=== PATIENT | female | born 1960 | race Caucasian/White ===

== ENCOUNTER 2025-07-02 21:59 | Inpatient (IN) | payer BC ==
[~2025-07-02] VITALS: Ht 177.8 cm; Wt 62.2 kg
--- NOTE | 2025-07-02 23:03 | Physician Documentation ---
History of Present Illness ~ Chief Complaint: Shortness of Breath Stated Complaint: TRANSFER Time Seen by MD: 22:07 HPI 64-year-old female, history of lymphoma, PE, on Eliquis, presenting with progressively worsening shortness of breath with exertion. Presents as a transfer from an outside hospital. She had a workup there that showed a pericardial effusion, likely the cause of her symptoms. White blood cell count 6.7. Kidney function normal. Troponin normal. CT PE study shows a moderate-sized pericardial infusion, no PE, small bilateral pleural effusions. The outside hospital did contact her oncology team at [facility]. There were no beds available. After a discussion, it was decided that she will be transferred to our hospital. Here now in the ED, she tells me that she is feeling okay at rest. She denies any significant shortness of breath or chest pain currently. Review of Systems Constitutional: Denies: fever Respiratory: Reports: SOB with exertion Physical Exam Vital Signs: Temperature: 97.8, Source: Oral, Heart Rate: 102, Respiratory Rate: 18, BP: 126/78, Pulse Oximetry: 98, Weight: 62.200 Oxygen Flow Rate: 0 Physical Exam General: This is a pleasant although chronically ill-appearing middle-aged woman, not in distress HEENT: Atraumatic, oropharynx is moist Heart: Mild tachycardic, diminished heart sounds,, normal-appearing peripheral perfusion Lungs: normal work of breathing at rest and is speaking in full sentences, normal oxygen saturation on room air Neuro: Alert and oriented Psychiatric: Calm and cooperative with exam Progress Results/Orders Results/Orders Orders - MUKUND MCCAULEY MD Electrocardiogram (07/02/25 22:00) Vital Signs 07/02/25 22:06 Temp 97.8 Pulse 102 Resp 18 B/P (MAP) 126/78 Pulse Ox 98 O2 Flow Rate 0 Consults/PCP Consults/PCP : Additional Comment Consult: I spoke to the internal medicine service, for admission in the hospital Medical Decision Making Additional info obtained from: old records Findings I reviewed records from the previous hospital, [facility]. This includes laboratory testing and CT imaging Additional Infomation The patient presents as a transfer from an outside hospital with a symptomatic pericardial effusion. At rest, she is not in distress and has minimal symptoms. She had an extensive workup already today including a CT of her chest. She will be admitted to the medicine service for further workup and treatment. Departure Impression: Primary Impression: Pericardial effusion Additional Impression: Exertional shortness of breath Referrals: NO PRIMARY CARE PROVIDER (PCP) Signature Scribe Signature: na Attestation: MUKUND Vázquez MD Jul 02, 2025 23:03
[2025-07-03] MEDS ORDERED: magnesium hydroxide 30ml (MOM) UD suspension PO PRN (00:15)
[2025-07-03] MEDS ORDERED: magnesium sulf-water 2g/50mL 50 ML IV PRN (00:15)
[2025-07-03] MEDS ORDERED: mag hydrox/Alum hydrox/simeth 30ml oral suspension PO PRN (00:15)
[2025-07-03] MEDS ORDERED: potassium Cl 20 mEq SR tablet PO PRN ×2 (00:15)
[2025-07-03] MEDS ORDERED: potassium Cl 40MEQ/1/2NS 520ml 520 ML IV PRN (00:15)
[2025-07-03] MEDS ORDERED: ondansetron/PF 4mg/2ml inj IV PRN (00:15)
[2025-07-03] MEDS ORDERED: magnesium sulf-water 4G/100mL 100 ML IV PRN (00:15)
[2025-07-03] MEDS ORDERED: magnesium Cl slow-release 64mg tablet PO PRN (00:15)
--- NOTE | 2025-07-03 00:34 | HISTORY AND PHYSICAL-Residence ---
History & Physical Providers to Resident Creating Document: ADE MARIE, DELFINO ~ History of Present Illness Reason for Admit\Complaint: Shortness of breath History of Present Illness 64-year-old female with history of lymphoma, pulmonary embolism, pneumonia was transferred from [facility] for chest pain and shortness of breath on exertion. She states that her chest pain started 5 days ago while at rest. She reports the chest pain being diffuse all over and radiates to the back, worsened since yesterday and is at a severity of 6/10 now. She went to [place] today morning. She states that the pain increases when she leans forward and when she takes deep breaths. She has associated shortness of breath on exertion, which is not related to position. She reports having history of lymphoma, diagnosed in 2020, for which she underwent radiation and chemotherapy. She states that she became cancer free, but it again came back last January and has been on immunotherapy since then. She denies palpitations, diaphoresis, nausea, vomiting. She reports having chronic cough with mild clear sputum. She denies any recent infections, she states that she had pneumonia last September and that she was septic and hospitalized for few days. She states that she has right-sided ankle swelling but does not remember getting hurt or twisting it. She reports taking Eliquis due to past history of pulmonary embolism. She denies any other cardiac history. CT chest at [facility] shows moderate pericardial effusion. Initial attempt was made to transfer to [facility] for continuity of care with patient's oncology team, however there were no beds available. Allergies: Uncoded Allergies: CHEMOTHERAPY DRUG (Allergy, Unknown, 07/03/25) UNK DRUG; PT CAN NOT RECALL NAME Past Medical History Past Medical History Lymphoma Pulmonary embolism Pneumonia Hypothyroidism Past Surgical History Surgical History Comment Hysterectomy for endometriosis Past Social History Social History Comment She denies smoking She drinks alcohol occasionally-some wine couple times a week She denies recreational drug use ROS ROS Constitutional: No fever, chills, dizziness, weight gain or loss Eyes: No pain, erythema, discharge, blurring of vision ENT: No sore throat, epistaxis, tinnitus Cardiovascular: Reports chest pain, no palpitations, syncope, lower extremity edema, paroxysmal nocturnal dyspnea Respiratory: Reports Shortness of breath and cough, No hemoptysis. Gastrointestinal: No Abdominal pain, vomiting,nausea,constipation,diarrhea. Normal appetite. No hematemesis or melena. Musculoskeletal: Reports Swelling in right ankle, no swelling in left leg, no pain in bilateral lower legs. Integumentary: No change in skin, hair, nails. No bruising, abrasions Neurologic: No weakness,No headache, neck pain, numbness or tingling of the extremities, Psychiatric: No delusions, depression, loss of interest in normal activity or change in sleep pattern, hallucinations, suicidal ideations Endocrine: No fatigue, no weakness. polydipsia, polyuria, change in appetite, heat or cold intolerance, sweating, dry skin Hematological: No bleeding, petechiae, bruising Allergies: No asthma or urticaria Constitutional: Denies: fever Respiratory: Reports: SOB with exertion Exam Vitals: Vital Signs Date Time Temp Pulse Resp B/P (MAP) Pulse Ox O2 Delivery O2 Flow Rate FiO2 07/02/25 22:06 97.8 102 18 126/78 98 0 General: Awake , alert, and oriented x4, resting comfortably in the bed, in no acute distress HEENT: Atraumatic, normocephalic, EOMI, anicteric sclera ; pink conjunctiva Neck: Trachea midline. Supple, full range of motion, no JVD Cardiac: Tachycardic, Regular rhythm with no murmurs all over the precordium, no tenderness Respiratory: Equal breath sounds bilaterally, no tachypnea, no wheezing ,rub or rales, Chest wall is symmetric and without deformity. Gastrointestinal: Abdomen symmetric, non-distended, soft, non-tender, normal bowel sounds x4 quadrant, normoactive, no hepatosplenomegaly Musculoskeletal: Mild swelling in right ankle, No left pedal edema, no cyanosis Neurological: Speech is clear, alert, and oriented x 4. No motor or sensory deficit, deep tendon reflexes normal, cerebellar intact. Cranial nerves II-XII intact. Skin: Warm and dry Diagnostic Data Last Recorded Lab Results: 07/03/25 0049 07/03/25 0049 Additional Plan Chest pain, possibly due to pericardial effusion History of lymphoma CT at [facility] shows no PE, small bilateral pleural effusions with associated compressive atelectasis, and shows pericardial effusion Chest x-ray at [facility] shows bilateral pleural effusion with adjacent bilateral lung base atelectasis EKG shows no ST-elevation, no arrhythmias Plan: Follow up BNP, echo Follow up troponins Follow up WBC, electrolytes Follow up lactate, procalcitonin, ESR, CRP Pending home med reconciliation She uses Eliquis due to previous history of pulmonary embolism, hold Eliquis Ordered colchicine 0.6 mg p.o. once Patient not started on NSAIDs in view of recent use of Eliquis at home, which makes bleeding risk high if plan for any procedures History of pulmonary embolism Patient was using Eliquis at home We will restart after patient stabilized Hypothyroidism Patient using levothyroxine at home Follow up TSH Code status: Full code DVT prophylaxis: SCD Pain management: Morphine 1 mg/2 mg p.r.n. Diet/nutrition: Heart healthy diet Prognosis: Guarded Disposition: Continue medical management, follow up echo, PT eval and DC plan Resident MD attestation: The patient note has been reviewed and supervised by senior residents PGY-2/ PGY-3. Patient was seen, examined and discussed with attending physician. Ade Marie MD Internal Medicine resident, PGY-1 [facility] Date of Service: Jul 03, 2025 Billing Provider: MADDIE AGUILERA MD Addendum agreed with resident Pericardial effusion - moderate -hold elliquis - echo stat - colcichine PO for pericardititis - esr, crp - cards consult IM 3 ADE MARIE, RES Jul 03, 2025 00:34 MADDIE AGUILERA MD Jul 03, 2025 03:57
[2025-07-03 00:55] LABS: MEAN PLATELET VOLUME 5.8 FL (7.4-10.4); RED CELL DISTRIBUTION WIDTH 16.0 % (11.5-14.5)
[2025-07-03] MEDS ORDERED: EST1T PO (00:58)
[2025-07-03] MEDS ORDERED: ACYC-129 PO (00:58)
[2025-07-03] MEDS ORDERED: ARIP5TAB12 PO (00:58)
[2025-07-03] MEDS ORDERED: APIX5TAB3 PO (00:58)
[2025-07-03] MEDS ORDERED: ESCI10TA PO (00:58)
[2025-07-03] MEDS ORDERED: CYCL-1 PO (00:58)
[2025-07-03] MEDS: heparin sodium, porcine/PF 100unit/ml 5ML syringe IV STA ×2 (01:02→03:47)
[2025-07-03 01:09] LABS: APTT 40 SECONDS (22-32); INR 1.2 INR
[2025-07-03 01:18] LABS: CREATININE 0.57 MG/DL (0.40-0.90); PHOSPHORUS 3.0 MG/DL (2.3-4.5); PRO BRAIN NATRIURETIC PEPTIDE 595 PG/ML (0-125); TOTAL CARBON DIOXIDE 25.7 MMOL/L (24-32); eCRCL 98 ML/MIN; eGFR > 90 ML/MIN
[2025-07-03 01:19] LABS: LEUKOCYTE ESTERASE ,URINE NEGATIVE (Neg); NITRITES, URINE NEGATIVE (Neg); OCCULT BLOOD,URINE TRACE-INTACT (Neg)
[2025-07-03 01:28] LABS: UA COLLECTION TYPE VOIDED
[2025-07-03 01:31] LABS: HYALINE CASTS 0-3 /LPF (NEGATIVE); MUCUS STRANDS FEW /LPF (Neg); SQUAMOUS EPITHELIAL CELL,UR FEW /LPF (FEW)
[2025-07-03 01:32] LABS: CAL OXALATE CRYSTALS 1+ /HPF (NEGATIVE)
[2025-07-03] MEDS ORDERED: heparin sodium, porcine/PF 100unit/ml 5ML syringe IV STA (02:50)
[2025-07-03] MEDS: oxyCODONE IR 5mg (immed. release) tablet PO ONE (03:46)
--- NOTE | 2025-07-03 06:30 | ELECTROCARDIOGRAPH REPORT ---
[facility] Test Date: 2025-07-02 Test Time: 22:02:15 Pat Name: JOEL JENKINS Department: [facility]-ER Patient ID: [facility]-[id number] Room: [place] [address] Gender: F Lawn Specialist: : [id number] Requested By: MUKUND MCCAULEY Order Number: [id number] Reading MD: Dr. Chilango Valentin Measurements Intervals [place] Rate: 103 P: 16 MO: 150 QRS: -28 QRSD: 94 T: 74 QT: 310 QTc: 406 Interpretive Statements Sinus tachycardia Borderline left axis deviation Probable anterior infarct, old ST elevation, consider inferior injury Electronically Signed On 07-06-2025 21:45:[address] Chilango Valentin Please click the below link to view image of tracing.
[2025-07-03 08:00] VITALS: RESP 16; O2SAT 96
[2025-07-03] MEDS: K and/or MAG REPLACEMENT MC SCH (08:00)
[2025-07-03 11:00] VITALS: BP 125/82; PULSE 101; RESP 20; TEMP 98; O2SAT 98
[2025-07-03] MEDS: docusate sod 100mg capsule PO SCH (11:28)
[2025-07-03] MEDS: levoTHYROXINE 25mcg tablet PO SCH (11:29)
--- NOTE | 2025-07-03 12:10 | RADIOLOGY REPORT ---
CHEST RADIOGRAPH Indication: monitor changes Technique: Single frontal view of the chest was obtained Comparison: XR CHEST 2 VIEWS on DOS: 07/02/25 FINDINGS: Lines and Tubes: Right infusion catheter with its tip terminating in the superior vena cava. Lungs: Bibasilar airspace disease. Pleura: Stable bilateral pleural effusions. No pneumothorax. Cardiomediastinal contours: Unremarkable Bones: No acute osseous abnormality. IMPRESSION: 1. Bibasilar airspace disease and pleural effusions. No significant interval change.
[2025-07-03] MEDS ORDERED: SULF1TAB45 PO (12:41)
--- NOTE | 2025-07-03 13:52 | PROGRESS NOTE- Residence ---
Progress Note - Resident Providers to CC Resident Creating Document: ELAINE KIMBALL RES ~ Antibiotic Timeout Antibiotic Ordered?: Yes Subjective Patient was seen and examined at the bedside. is at the bedside who is concerned about his condition. Patient is hemodynamically stable. Consulted medical transcriber Dr. Tonja Singleton who recommended medical management as the pericardial effusion is likely secondary to malignancy and would likely be recurring even after pericardiocentesis. Medication reconciliation done. Records requested from [facility] to check for any medications that could be causing cardiomyopathy and pericardial effusion. Restarted patient prophylactic antibiotics for neutropenia including Bactrim 3 times weekly and antiviral prophylaxis with acyclovir b.i.d. Objective Vital Signs Date Time Temp Pulse Resp B/P (MAP) Pulse Ox O2 Delivery O2 Flow Rate FiO2 07/03/25 08:23 96 07/03/25 03:10 97.8 17 113/78 (90) 96 0 Result Diagram: 07/03/25 0049 07/03/25 0049 General: This is a pleasant although chronically ill-appearing middle-aged woman, not in distress, not on oxygen HEENT: Atraumatic, oropharynx is moist Heart: Regular rate and rhythm, slightly diminished heart sounds, no pericardial friction rub, normal-appearing peripheral perfusion Lungs: normal work of breathing at rest and is speaking in full sentences, normal oxygen saturation on room air Neuro: Alert and oriented Psychiatric: Calm and cooperative with exam Coagulation Studies Laboratory Tests Test 07/03/25 00:49 07/03/25 10:45 Prothrombin Time 11.9 SECONDS (9.0-12.0) INR International Normalized Ratio 1.2 INR Activated Partial Thromboplast Time 40 SECONDS (22-32) H Coagulation Comments D-Dimer 6.18 MG/L FEU (0-0.50) H D-Dimer Comment Assessment Assessment 64-year-old female with history of lymphoma, pulmonary embolism, pneumonia was transferred from [facility] for chest pain and shortness of breath on exertion. She states that her chest pain started 5 days ago while at rest. She reports the chest pain being diffuse all over and radiates to the back, worsened since yesterday and is at a severity of 6/10 now. She went to [place] today morning. She states that the pain increases when she leans forward and when she takes deep breaths. She has associated shortness of breath on exertion, which is not related to position. She reports having history of lymphoma, diagnosed in 2020, for which she underwent radiation and chemotherapy. She states that she became cancer free, but it again came back last January and has been on immunotherapy since then. She denies palpitations, diaphoresis, nausea, vomiting. She reports having chronic cough with mild clear sputum. She denies any recent infections, she states that she had pneumonia last September and that she was septic and hospitalized for few days. She states that she has right-sided ankle swelling but does not remember getting hurt or twisting it. She reports taking Eliquis due to past history of pulmonary embolism. She denies any other cardiac history. CT chest at [facility] shows moderate pericardial effusion. Initial attempt was made to transfer to [facility] for continuity of care with patient's oncology team, however there were no beds available. Plan Plan Acute pericardial effusion likely malignant effusion, other differentials include pericardial effusion secondary to heart failure History of lymphoma Acute on chronic heart failure with preserved ejection fraction Small bilateral pleural effusions CT at [facility] shows no PE, small bilateral pleural effusions with associated compressive atelectasis, and shows pericardial effusion Chest x-ray at [facility] shows bilateral pleural effusion with adjacent bilateral lung base atelectasis Chest x-ray to [facility] shows bibasilar infiltrates with cardiomegaly EKG shows sinus rhythm. Continue telemetry monitoring. BNP 595, echocardiogram shows small pericardial effusion with hemodynamic stability and EF of 55-60%. Started on IV Lasix 20 mg daily. Monitor I&O. Serial troponins negative Mild leukopenia likely secondary to immunotherapy, continue monitoring ANC 3000. Currently on prophylactic antibiotics with Bactrim 3 times a week, acyclovir and b.i.d. Lab evaluation normal lactate, procalcitonin 0.05, ESR significantly elevated likely secondary to malignancy, CRP slightly elevated Ordered colchicine 0.6 mg p.o. b.i.d. daily Started on NSAIDs ibuprofen 600 mg q.8 hours. Obtain records from [facility]. History of pulmonary embolism Patient was using Eliquis at home Restarted Eliquis 5 mg b.i.d. Hypothyroidism Started on levothyroxine 25 mcg TSH is slightly elevated at 12 Code status: Full code DVT prophylaxis: Eliquis Pain management: Ibuprofen Diet/nutrition: Heart healthy diet Prognosis: Guarded Disposition: Continue medical management, anticipated discharge tomorrow Patient was seen, examined and discussed with attending physician. Elaine Hart MD Internal Medicine resident, PGY-2 [facility] Date of Service: Jul 03, 2025 Billing Provider: DELFINA LIVINGSTON MD Common Visit Codes: [id number] INP/OBS CARE(HIGH) ELAINE KIMBALL, RES Jul 03, 2025 13:52 DELFINA LIVINGSTON MD Jul 03, 2025 18:17
[2025-07-03] MEDS: normal saline 1000ml 1,000 ML IV SCH (14:30)
[2025-07-03 15:00] VITALS: BP 113/86; PULSE 102; RESP 20; O2SAT 98
[2025-07-03] MEDS: sulfamethoxazole/trimethoprim DS (800/160mg) tablet PO SCH (16:56)
--- NOTE | 2025-07-03 17:12 | CONSULTATION REPORT ---
History of Present Illness Providers to CC CC: MIKE SINGLETON MD ~ Reason for Admit\Admit Dx: Shortness of breath History of Present Illness Patient presented as a transfer from [facility] secondary to pericardial effusion. She has past medical history significant for lymphoma with reoccurrence in December, she has had two PEs in the past in his being treated with Eliquis. She presented secondary to sharp like chest pain for the past 4-5 days that is intermittent worse with leaning forward. States dyspnea on exertion and not being able to take a deep breath. Pain has improved since arrival. Apparently, she had a CT scan at [facility] that demonstrated a moderate pericardial effusion. She underwent a TTE here at [facility] that demonstrated a small circumferential pericardial effusion without evidence of hemodynamic compromise. Her vital signs have remained stable. She is chest pain-free. Sed rate elevated, CRP elevated. Cardiology consultation requested with the on-call truck cleaner, Dr. Singleton. Allergies: Uncoded Allergies: CHEMOTHERAPY DRUG (Allergy, Unknown, 07/03/25) UNK DRUG; PT CAN NOT RECALL NAME Home Medications Home Medications Active Reported Sept Ds Tab (Trimethoprim/Sulfamethoxazole) 800 Mg/160 Mg Tablet 1 Tab PO MOWEFR Estrace* (Estradiol) 1 Mg Tablet 1 Tab PO DAILY 30 Days Abilify* (Aripiprazole) 5 Mg Tablet 1 Tab PO DAILY 30 Days Lexapro (Escitalopram Oxalate) 10 Mg Tablet 1 Tab PO DAILY 30 Days Cyclobenzaprine* (Cyclobenzaprine HCl) 10 Mg Tablet 1 Tab PO HS 30 Days Zovirax* (Acyclovir) 800 Mg Tablet 1 Tab PO BID 7 Days Eliquis (Apixaban) 5 Mg Tablet 1 Tab PO Q12H 30 Days Past Medical History Medical History Comment Lymphoma Pulmonary embolism Hyperparathyroidism Hypercalcemia Past Surgical History Surgical History Comment Denies surgical history Past Social History Social History Comment Rarely drinks alcohol. No recreational drug use. Nonsmoker. Physical Exam Last Vital Signs Recorded: RN Vital Signs have been reviewed: Yes, Temperature: 97.8, Source: Oral, Heart Rate: 96, Respiratory Rate: 17, BP: 113/78, Pulse Oximetry: 96, Weight: 62.200 Physical Exam General: Awake, alert, oriented. No apparent distress Neck: Supple. Normal range of motion. No JVD Respiratory: Lungs are clear to auscultation bilaterally. No respiratory distress. Chest: Normal shape and size. No accessory muscle use. Cardiovascular: Regular rate and rhythm. S1-S2. No murmur, gallop, rub. Gastrointestinal: Abdomen is soft. Nontender to palpation. Extremities: No lower extremity edema, cyanosis or clubbing. Neurologic: Alert and oriented x4. Nonfocal Psychiatric: Normal mood and affect. Skin: Normal color. Warm and dry. Review of Systems ROS Review of systems negative except documented in HPI. Results EKG EKG Independent interpretation of EKG sinus tachycardia rate of 103. Left axis deviation. Poor R-wave progression. Echocardiogram Echocardiogram LVEF by preliminary report 60%. Small circumferential pericardial effusion by echocardiogram. Diagram Lab Result Diagram: 07/03/25 00407/03/25 004 Assessment/Plan Additional Plan Patient presented secondary to chest pain. The following is her problem list: Chest pain Small pericardial effusion meets some criteria for acute pericarditis with elevated inflammatory markers. will start ibuprofen 600 mg TID. given OAC use recommend omeprazole while on NSAIDs. f/up in the office within 2 weeks repeat TTE 3-6 weeks. History of pulmonary embolism --continue Eliquis 5 mg b.i.d. History of lymphoma Currently receiving immunotherapy hypothyroidism started on levothyroxine this admit. Case discussed with dr. Emelia Singleton who is in agreement with the above plan. Supervising MD Supervising Physician: ROLAND Vela NP Jul 03, 2025 17:12
[2025-07-03] MEDS ORDERED: ibuprofen tablet 400 MG TABLET PO SCH (17:30)
[2025-07-03 18:00] VITALS: BP 125/76; PULSE 102; RESP 18; TEMP 97.6; O2SAT 98
[2025-07-03] MEDS ORDERED: morphine 4 MG/ML inj SYRINge IV PRN ×2 (18:20→18:21)
--- NOTE | 2025-07-03 18:40 | CARDIOLOGY REPORT ---
APPROVED REPORT EXAM: Comprehensive 2D, Doppler, and color-flow Echocardiogram. Patient Location: [address] Blood Pressure: 113/78 mmHg Heart Rate: 100 bpm Rhythm: SINUS TACHYCARDIA Indications PERICARDIAL EFFUSION / TAMPONADE CHEST PAIN X5 DAYS MODERATE PERICARDIAL EFFUSION ON CT Business Rules Developer: none Previous echo: none 2D Dimensions RVDd 3.3 cm IVSd 1.1 (0.7-1.1cm) LVDd 4.3 cm PWd 1.2 (0.7-1.1cm) IVSs 1.4 (0.8-1.2cm) LVDs 2.8 (2.5-4.0cm) PWs 1.1 (0.8-1.2cm) LVOT Diameter 2.02 (1.8-2.4cm) LVEF(%) 65.7 (>50%) Ao Asc Diam. 3.08 cm IVC 19.45 mm FS (%) 35.9 % SV 55.9 ml CO 6.3 L/min M-Mode Dimensions Left Atrium(MM) 2.97 (2.5-4.0cm) Aortic Root 2.93 (2.2-3.7cm) Aortic Cusp Exc 2.05 (1.5-2.0cm) Aortic Valve AoV Peak Robbie. 146.0 cm/s AoV VTI 23.1 cm AO Peak GR. 8.5 mmHg AO Mean GR. 5 mmHg LVOT VTI 24.99 cm LVOT Peak Robbie. 124.3 cm/s DELIA(VTI)/BSA 3.46 cm2/m2 DELIA (VTI) 3.46 cm2 Mitral Valve MV E Velocity 85.0 cm/s MV Peak Gr. 4 mmHg MV DECEL TIME 134 ms MV A Velocity 102.3 cm/s MV PHT 52 ms E/A Ratio 0.8 MVA (PHT) 4.23 cm2 MV VMax 104.1 cm/s TDI Medial E' P. V 11.05 cm/s E/Medial E' 7.7 Pulmonary Vein S1 Velocity 64.7 cm/s D2 Velocity 47.9 cm/s PVa Velocity 27.9 cm/s PVa Duration 56 msec LEFT VENTRICLE Normal LV size and wall thickness. Overall systolic function is normal. LVEF is 60-65%. RIGHT VENTRICLE RV is mildly dilated in size with normal function. Thickened RV free wall. ATRIA LA size is normal. AORTIC VALVE Trileaflet AV appears mildly sclerotic without stenosis or insufficiency. MITRAL VALVE Mild MV annular calcification without stenosis. Trace regurgitation. TRICUSPID VALVE TV appears structurally normal with trace regurgitation. PULMONIC VALVE Normal PV without stenosis, physiologic insufficiency. GREAT VESSELS Aortic root is normal in size. Ascending aorta is normal in size. The IVC is normal in size and collapses greater than 50% with inspiration. PERICARDIUM Small circumferential pericardial effusion without evidence of hemodynamic compromise. Minimal MV respiratory variation noted. No RA or RV collapse noted. Other Information Study Quality: Adequate Conclusion Normal LV size and wall thickness. Overall systolic function is normal. LVEF is 60-65%. RV is mildly dilated in size with normal function. Thickened RV free wall. LA size is normal. Trileaflet AV appears mildly sclerotic without stenosis or insufficiency. Mild MV annular calcification without stenosis. Trace regurgitation. TV appears structurally normal with trace regurgitation. Small circumferential pericardial effusion without evidence of hemodynamic compromise. Minimal MV respiratory variation noted. No RA or RV collapse noted.
[2025-07-03 20:00] VITALS: RESP 18; O2SAT 98
[2025-07-03] MEDS: pantoprazole 40mg Tablet.DR PO SCH (20:30)
[2025-07-03 22:00] VITALS: BP 112/73; PULSE 99; RESP 14; TEMP 97.5; O2SAT 95
[2025-07-04 02:00] VITALS: BP 113/75; PULSE 95; RESP 14; TEMP 98; O2SAT 95
[2025-07-04 05:43] LABS: MEAN PLATELET VOLUME 6.2 FL (7.4-10.4); RED CELL DISTRIBUTION WIDTH 15.8 % (11.5-14.5)
[2025-07-04 06:00] VITALS: BP 138/84; PULSE 87; RESP 15; TEMP 97.4; O2SAT 97
[2025-07-04 06:13] LABS: CHOL/HDL RATIO 4.5 (0.00-4.99); CREATININE 0.57 MG/DL (0.40-0.90); LDL CHOLESTEROL 112 MG/DL (50-100); TOTAL CARBON DIOXIDE 27.7 MMOL/L (24-32); eCRCL 98 ML/MIN; eGFR > 90 ML/MIN
[2025-07-04 06:45] LABS: EOSINOPHILS % (MANUAL) 8.0 % (0-6); LYMPHOCYTES % (MANUAL) 8.0 % (21-51); MONOCYTES % (MANUAL) 16.0 % (2-12); NEUTROPHILS % (MANUAL) 68.0 % (42-75)
[2025-07-04 06:46] LABS: PLATELET ESTIMATE NORMAL
[2025-07-04] MEDS ORDERED: pantoprazole 40mg Tablet.DR PO SCH (07:30)
[2025-07-04 08:00] VITALS: RESP 15; O2SAT 97
[2025-07-04] MEDS ORDERED: IBUP-1594 PO (08:42)
[2025-07-04] MEDS ORDERED: PANT40TA54 PO (08:42)
[2025-07-04] MEDS: ESCITALOPRAM 10 mg tablet 10 MG TABLET PO SCH (09:07)
--- NOTE | 2025-07-04 11:00 | PROGRESS NOTE ---
Progress Note Cardiology Providers to CC CC: MIKE SINGLETON MD ~ Subjective Subjective Patient is seen and examined. She has been up and ambulatory. Denies chest pain. Objective Result Diagram: 07/04/25 0515 07/04/25 0515 Objective General: Awake, alert, oriented. No apparent distress Cardiac: Regular rate and rhythm. No murmur. No rub. Lungs clear to auscultation bilaterally Extremities: No edema Coagulation Studies Laboratory Tests Test 07/03/25 00:49 07/03/25 10:45 Prothrombin Time 11.9 SECONDS (9.0-12.0) INR International Normalized Ratio 1.2 INR Activated Partial Thromboplast Time 40 SECONDS (22-32) H Coagulation Comments D-Dimer 6.18 MG/L FEU (0-0.50) H D-Dimer Comment Problem\Assessment\Plan Additional Plan Patient presented secondary to chest pain. The following is her problem list: Chest pain Small pericardial effusion meets some criteria for acute pericarditis with elevated inflammatory markers. will start ibuprofen 600 mg TID. given OAC use recommend omeprazole while on NSAIDs. f/up in the office within 2 weeks repeat TTE 3-6 weeks. 07/04/25: discussed with pt and her at bedside. reviewed a note from lead oncologist who does not believe the effusion would be 2/2 malignancy. Therefore, mgt as per above. History of pulmonary embolism --continue Eliquis 5 mg b.i.d. History of lymphoma Currently receiving immunotherapy hypothyroidism started on levothyroxine this admit. Case discussed with dr. Emelia Singleton who is in agreement with the above plan. Supervising Physician: ROLAND Vela NP Jul 04, 2025 10:59
[2025-07-04] MEDS ORDERED: heparin sodium, porcine/PF 100unit/ml 5ML syringe ONE (11:14)
[2025-07-04] MEDS: heparin sodium, porcine/PF 100unit/ml 5ML syringe IV ONE (11:51)
--- NOTE | 2025-07-04 15:57 | DISCHARGE SUMMARY-Residence ---
Discharge Summary Providers to CC Resident Creating Document: ELAINE KIMBALL, RES ~ Discharge Summary Admission Diagnosis: SHORTNESS OF BREATH Hospital Course DATE OF ADMISSION: 07/02/2025 DATE OF DISCHARGE: 07/04/2025 Discharge Diagnosis\Comment: Acute pericardial effusion likely malignant effusion, acute heart failure Acute pericarditis can not be ruled out History of lymphoma Acute on chronic heart failure with preserved ejection fraction Small bilateral pleural effusions History of pulmonary embolism Hypothyroidism Operations\Procedures: None Consultants: Dr. Tonja Singleton Complications: None Condition on DC: Stable New Medications: Ibuprofen (Motrin Ib) 200 Mg Tablet 600 MG PO Q8H for 30 Days, #90 TAB Pantoprazole Sodium (Pantoprazole Sodium) 40 Mg Tablet.dr 40 MG PO ONCE for 30 Days, #30 TAB.SR Continued Medications: Acyclovir* (Zovirax*) 800 Mg Tablet 1 TAB PO BID for 7 Days, #35 TAB Apixaban (Eliquis) 5 Mg Tablet 1 TAB PO Q12H for 30 Days, #60 TAB 0 Refills Aripiprazole* (Abilify*) 5 Mg Tablet 1 TAB PO DAILY for 30 Days, #30 TAB 0 Refills Cyclobenzaprine* (Cyclobenzaprine*) 10 Mg Tablet 1 TAB PO HS for muscle spasms for 30 Days, #30 TAB 0 Refills Escitalopram Oxalate (Lexapro) 10 Mg Tablet 1 TAB PO DAILY for 30 Days, #30 TAB 0 Refills Estradiol* (Estrace*) 1 Mg Tablet 1 TAB PO DAILY for 30 Days, #30 TAB Sulfamethoxazole/Trimethoprim (Septra Ds Tab) 800 Mg/160 Mg Tablet 1 TAB PO MoWeFr Discharge Summary: 64-year-old female with history of lymphoma, pulmonary embolism, pneumonia was transferred from [facility] for chest pain and shortness of breath on exertion. She states that her chest pain started 5 days ago while at rest. She reports the chest pain being diffuse all over and radiates to the back, worsened since yesterday and is at a severity of 6/10 now. She went to [place] today morning. She states that the pain increases when she leans forward and when she takes deep breaths. She has associated shortness of breath on exertion, which is not related to position. She reports having history of lymphoma, diagnosed in 2020, for which she underwent radiation and chemotherapy. She states that she became cancer free, but it again came back last January and has been on immunotherapy since then. She denies palpitations, diaphoresis, nausea, vomiting. She reports having chronic cough with mild clear sputum. She denies any recent infections, she states that she had pneumonia last September and that she was septic and hospitalized for few days. She states that she has right-sided ankle swelling but does not remember getting hurt or twisting it. She reports taking Eliquis due to past history of pulmonary embolism. She denies any other cardiac history. CT chest at [facility] shows moderate pericardial effusion. Initial attempt was made to transfer to [facility] for continuity of care with patient's oncology team, however there were no beds available. Chest x-ray at [facility] shows bilateral pleural effusion with adjacent bilateral lung base atelectasis. Hospital course: Patient has had a pericardial effusion secondary to malignancy. This is likely to be recurrent even if drained. Repeat Chest x-ray showed bibasilar infiltrates with cardiomegaly. EKG shows sinus rhythm. BNP 595, repeat echocardiogram shows small pericardial effusion with hemodynamic stability and EF of 55-60%. Started on IV Lasix 20 mg daily. Serial troponins negative. Mild leukopenia likely secondary to immunotherapy, ANC 3000. Currently on prophylactic antibiotics with Bactrim 3 times a week, acyclovir and b.i.d. Lab evaluation normal lactate, procalcitonin 0.05, ESR significantly elevated likely secondary to malignancy, CRP slightly elevated. Ordered colchicine 0.6 mg p.o. b.i.d. daily. Started on NSAIDs ibuprofen 600 mg q.8 hours. Cardiology was consulted for any additional recommendations. Patient pericardial effusion decreased in size with NSAIDs and colchicine treatment and did not require any intervention with pericardiocentesis. Patient was hemodynamically stable at the time of discharge and was discharged home with ibuprofen and pantoprazole. Physical exam at discharge: General: This is a pleasant although chronically ill-appearing middle-aged woman, not in distress, not on oxygen HEENT: Atraumatic, oropharynx is moist Heart: Regular rate and rhythm, slightly diminished heart sounds, no pericardial friction rub, normal-appearing peripheral perfusion Lungs: normal work of breathing at rest and is speaking in full sentences, normal oxygen saturation on room air Neuro: Alert and oriented Psychiatric: Calm and cooperative with exam Vital Signs Date Time Temp Pulse Resp B/P (MAP) Pulse Ox O2 Delivery O2 Flow Rate FiO2 07/04/25 08:00 15 97 Room Air 0.0 07/04/25 06:00 90 07/04/25 06:00 97.4 138/84 (102) Laboratory Tests Test 07/03/25 00:33 07/03/25 00:49 07/03/25 02:47 07/03/25 07:01 Urine Specimen Description Voided Urine Color Yellow Urine Clarity Clear Urine pH 5.5 Urine Specific [place] 1.025 Urine Protein Trace mg/dl Urine Glucose (UA) Negative mg/dl Urine Ketones 15 mg/dl Urine Occult Blood Trace-intact Urine Nitrite Negative Urine Bilirubin Negative Urine Urobilinogen 0.2 E.U/dL Urine Leukocyte Esterase Negative Urine RBC 3-10 /HPF Urine WBC 0-4 /HPF Urine Squamous Epithelial Cells Few /LPF Urine Calcium Oxalate Crystals 1+ /HPF Urine Bacteria Few /HPF Urine Hyaline Casts 0-3 /LPF Urine Mucus Few /LPF Urine Culture Indicated Not ind Volume Urine Centrifuged 10 ml Urine Comment White Blood Count 4.0 X10'3 Red Blood Count 3.42 X10'6 Hemoglobin 10.7 g/dl Hematocrit 31.6 % Mean Corpuscular Volume 92.4 FL Mean Corpuscular Hemoglobin 31.4 PG Mean Corpuscular Hemoglobin Concent 34.0 g/dL Red Cell Distribution Width 16.0 % Platelet Count 360 X10'3 Mean Platelet Volume 5.8 FL Neutrophils (%) (Auto) 76.1 % Lymphocytes (%) (Auto) 6.5 % Monocytes (%) (Auto) 12.2 % Eosinophils (%) (Auto) 4.6 % Basophils (%) (Auto) 0.6 % Neutrophils # (Auto) 3.0 X10'3 Lymphocytes # (Auto) 0.3 X10'3 Monocytes # (Auto) 0.5 X10'3 Eosinophils # (Auto) 0.2 X10'3 Basophils # (Auto) 0.0 X10'3 CBC Comment Prothrombin Time 11.9 SECONDS INR International Normalized Ratio 1.2 INR Activated Partial Thromboplast Time 40 SECONDS Coagulation Comments Sodium Level 141 MMOL/L Potassium Level 3.7 MMOL/L Chloride Level 108 MMOL/L Carbon Dioxide Level 25.7 MMOL/L Anion Gap 7 Blood Urea Nitrogen 12 MG/DL Creatinine 0.57 MG/DL Estimated GFR/1.73 m2 > 90 ML/MIN BUN/Creatinine Ratio 21.1 Glucose Level 93 MG/DL Hemoglobin A1c 4.5 % Calcium Level 10.5 MG/DL Phosphorus Level 3.0 MG/DL Magnesium Level 1.8 MG/DL Total Bilirubin 0.4 MG/DL Aspartate Amino Transf (AST/SGOT) 14 U/L Alanine Aminotransferase (ALT/SGPT) 23 U/L Alkaline Phosphatase 153 IU/L Troponin I High Sensitivity 6 ng/L 5 ng/L 5 ng/L Pro-B-Type Natriuretic Peptide 595 PG/ML Total Protein 6.7 G/DL Albumin 2.5 G/DL Globulin 4.2 G/DL Albumin/Globulin Ratio 0.6 Thyroid Stimulating Hormone (TSH) 12.85 ulU/ml Chemistry Comments Troponin I High Sens Percent Delta 16 % 0 % Troponin I Hi Sens Absolute Change -1 ng/L 0 ng/L Erythrocyte Sedimentation Rate 102 MM/HR Lactic Acid Level 0.6 MMOL/L C-Reactive Protein 11.60 MG/DL Procalcitonin 0.05 NG/ML Test 07/03/25 10:45 07/04/25 05:15 D-Dimer 6.18 MG/L FEU D-Dimer Comment White Blood Count 2.9 X10'3 Red Blood Count 3.27 X10'6 Hemoglobin 10.3 g/dl Hematocrit 30.5 % Mean Corpuscular Volume 93.2 FL Mean Corpuscular Hemoglobin 31.4 PG Mean Corpuscular Hemoglobin Concent 33.6 g/dL Red Cell Distribution Width 15.8 % Platelet Count 395 X10'3 Mean Platelet Volume 6.2 FL Neutrophils (%) (Auto) 68.7 % Lymphocytes (%) (Auto) 7.8 % Monocytes (%) (Auto) 14.9 % Eosinophils (%) (Auto) 7.6 % Basophils (%) (Auto) 1.0 % Neutrophils # (Auto) 2.0 X10'3 Lymphocytes # (Auto) 0.2 X10'3 Monocytes # (Auto) 0.4 X10'3 Eosinophils # (Auto) 0.2 X10'3 Basophils # (Auto) 0.0 X10'3 CBC Comment Differential Total Cells Counted 100 Neutrophils % (Manual) 68.0 % Lymphocytes % (Manual) 8.0 % Monocytes % (Manual) 16.0 % Eosinophils % (Manual) 8.0 % Platelet Estimate Normal Red Blood Cell Morphology Normal Basophilic Stippling Sodium Level 147 MMOL/L Potassium Level 3.6 MMOL/L Chloride Level 110 MMOL/L Carbon Dioxide Level 27.7 MMOL/L Anion Gap 9 Blood Urea Nitrogen 14 MG/DL Creatinine 0.57 MG/DL Estimated GFR/1.73 m2 > 90 ML/MIN BUN/Creatinine Ratio 24.6 Glucose Level 92 MG/DL Calcium Level 10.7 MG/DL Albumin 2.4 G/DL Triglycerides Level 89 MG/DL Cholesterol Level 188 MG/DL LDL Cholesterol 112 MG/DL HDL Cholesterol 42 MG/DL Cholesterol/HDL Ratio 4.5 Chemistry Comments Imaging: Echocardiogram: Normal LV size and wall thickness. Overall systolic function is normal. LVEF is 60-65%. RV is mildly dilated in size with normal function. Thickened RV free wall. LA size is normal. Trileaflet AV appears mildly sclerotic without stenosis or insufficiency. Mild MV annular calcification without stenosis. Trace regurgitation. TV appears structurally normal with trace regurgitation. Small circumferential pericardial effusion without evidence of hemodynamic compromise. Minimal MV respiratory variation noted. No RA or RV collapse noted. Chest x-ray: Bibasilar airspace disease and pleural effusions. No significant interval change. Discharge recommendations: Follow up with your PCP, oncologist and establish care with a diamond picker to monitor your pericardial effusion. You will need a repeat echocardiogram in 4-6 week to monitor resolution of pericardial effusion. We have prescribed two new medications for suspected pericarditis ibuprofen and pantoprazole. Take them as prescribed. Return to the ED if you have recurrent chest pain, shortness of breath or low blood pressure. *Problems/Diagnosis: (1) Pericardial effusion Status: Acute (2) Exertional shortness of breath Status: Acute Total Time Spent on D/C: > 30 Minutes Date of Service: Jul 04, 2025 Billing Provider: DELFINA LIVINGSTON MD Common Visit Codes: 13478-WCG/OBS DISCH DAY >30min ELAINE KIMBALL RES Jul 04, 2025 15:56 DELFINA LIVINGSTON MD Jul 04, 2025 18:05
== END 2025-07-04 12:08 | disposition home or self-care (01) | DRG 314 ==
LOC: ER 21:59 → ED HOLD 23:18 → PCU 3S 07-03 07:36
PROVIDERS: ADMIT Internal Medicine Critical Care Medicine; ATTEND Internal Medicine
DX: I30.9 Acute pericarditis, unspecified (principal); I50.33 Acute on chronic diastolic (congestive) heart failure; E03.9 Hypothyroidism, unspecified; D72.819 Decreased white blood cell count, unspecified; E21.3 Hyperparathyroidism, unspecified; Z86.711 Personal history of pulmonary embolism; Z85.72 Personal history of non-Hodgkin lymphomas; Z79.01 Long term (current) use of anticoagulants; Z92.3 Personal history of irradiation; Z92.21 Personal history of antineoplastic chemotherapy; Z90.710 Acquired absence of both cervix and uterus
CPT/HCPCS: 36415; 71045; 80048; 80053; 80061; 81001; 83036; 83605; 83735; 83880; 84100; 84145; 84443; 84484; 85007; 85025; 85379; 85610; 85651; 85730; 86140; 87081; 93005; 93306; 99285; G0378; J1642; J1938; J7030